=== PATIENT | male | born 1950 | race Caucasian/White ===

== ENCOUNTER 2020-04-05 05:30 | Outpatient (RCR) | payer MEDICARE ==
[~2020-04-05] VITALS: Ht 172.7 cm; Wt 75.8 kg
[~2020-04-05 05:30] MED LIST: AMLO-251 PO; ASPI-999 PO
== END 2020-04-05 12:39 | disposition home or self-care (01) ==
LOC: PREOP 05:30
PROVIDERS: ATTEND Surgery
DX: Z01.812 Encounter for preprocedural laboratory examination (principal); Z12.11 Encounter for screening for malignant neoplasm of colon; Z20.822 Contact with and (suspected) exposure to COVID-19
CPT/HCPCS: 87635

== ENCOUNTER → 2020-04-19 | Outpatient (CLI) | payer MEDICARE | LOC: LABNPT 06:04 | PROVIDERS: ATTEND Surgery | DX: Z20.822 Contact with and (suspected) exposure to COVID-19 (principal) | CPT/HCPCS: 87635 ==

== ENCOUNTER 2020-04-23 09:24 | Day surgery (SDC) | payer MEDICARE, OTHER ==
[~2020-04-23] VITALS: Ht 172.7 cm; Wt 75.8 kg
[2020-04-23] VITALS (10 sets, daily range): BP systolic 108–155; BP diastolic 62–100
[2020-04-23] MEDS ORDERED: LACTATED RINGERS 1,000 ML IV ONE (09:36)
[2020-04-23] MEDS ORDERED: PROPOFOL INJECTION 50 ML IV ONE (10:00)
[2020-04-23] MEDS ORDERED: LACTATED RINGERS 1,000 ML IV PRN (10:15)
--- NOTE | 2020-04-23 11:20 | Progress Note-Post Operative ---
Post-Operative Progess Note Surgeon (s)/Reinforcement Maker (s) Surgeon JACEK ELLER DO Reinforcement Maker: na Pre-Operative Diagnosis screening colonoscopy, family hx colon ca Post-Operative Diagnosis colon polyps Procedure & Operative Findings Date of Procedure 04/23/20 Procedure Performed/Findings colonoscopy c hot bx polypectomy x3 Anesthesia Type per [facility] Estimated Blood Loss Estimated blood loss (mL): none Specimens/Packing Specimens Removed colon polyps JACEK ELLER DO Apr 23, 2020 11:20
--- NOTE | 2020-04-23 11:20 | Discharge Inst-Simple/Standard ---
Discharge Inst-Standard Patient Instructions/Follow Up Plan of Care/Instructions/FU: 2 weeks Carlos Activity as Tolerated: Yes Discharge Diet: Regular Diet (high fiber) JACEK ELLER DO Apr 23, 2020 11:20
--- NOTE | 2020-04-23 15:48 | OPERATIVE REPORT ---
DATE OF SERVICE: 04/23/2020 PREOPERATIVE DIAGNOSIS: Screening colonoscopy, family history of colon cancer. POSTOPERATIVE DIAGNOSIS: Colon polyps. PROCEDURE: Colonoscopy with hot biopsy polypectomy x3. SURGEON: Jacek Gonzalez DO ANESTHESIA: Per SPRAY MIXER. ESTIMATED BLOOD LOSS: None. COMPLICATIONS: None. SPECIMENS: Ascending splenic flexure and sigmoid colon polyp. INDICATIONS: The patient is a 69-year-old male with need for colonoscopy that had one. He understands risks and benefits of procedure and wished to proceed with procedure. Consent was signed in the chart. DESCRIPTION OF PROCEDURE: The patient was taken to endoscopy suite, placed in left lateral recumbent position. Timeout was performed. Digital rectal exam was performed. No palpable polyps, masses or ulcerations. Scope was inserted in the rectum and advanced all the way to cecum with minimal difficulty. Prep was adequate with irrigation and suction. Scope was then slowly retracted back. There were no polyps, masses or ulcerations within the cecum. In the ascending colon, small polyp was present, which hot biopsy polypectomy was performed. Scope was then slowly retracted back through the remainder of the ascending and transverse colon with no polyps, masses or ulcerations. In the splenic flexure, small polyp was present, which hot biopsy polypectomy was performed. Scope was continuously slowly retracted back. No polyps, masses or ulcerations within the remainder of the descending colon. In sigmoid colon, some diverticulosis present. There are also polyp present, which hot biopsy polypectomy was performed. Scope was then continuously slowly retracted back into the rectum where it was retroflexed noting some slight internal hemorrhoids. No other pathology. Scope was returned to its normal position, slowly withdrawn until completely removed. The patient tolerated procedure well without any complications, taken to recovery room in stable condition. RECOMMENDATIONS: The patient will need a repeat colonoscopy in 5 years after evaluating risks and benefits. If he has any issues before that be seen at that time. The patient recommended high fiber diet due to diverticulosis. The patient will follow up in the office in two to three weeks to discuss pathology results. Job ID: [id number] DocumentID: [id number] Dictated Date: 04/23/2020 11:05:29 Cotton Farmer Date: 04/23/2020 15:48:17 Dictated By: JACEK GONZALEZ DO
--- NOTE | 2020-04-25 12:33 | Anesthesia-General Post-Op ---
MAC Patient Condition Mental Status/LOC: Same as Preop Cardiovascular: Satisfactory Nausea/Vomiting: Absent Respiratory: Satisfactory Pain: Controlled Complications: Absent Post Op Complications Complications None Follow Up Care/Instructions Patient Instructions None needed. Anesthesiology Discharge Order Discharge Order Patient is doing well, no complaints, stable vital signs, no apparent adverse anesthesia problems. No complications reported per nursing. WILD FELICIANO CRNA Apr 25, 2020 12:33
== END 2020-04-23 11:45 | disposition home or self-care (01) ==
LOC: ENDO 09:24
PROVIDERS: ATTEND Surgery
DX: Z12.11 Encounter for screening for malignant neoplasm of colon (principal); D12.2 Benign neoplasm of ascending colon; D12.3 Benign neoplasm of transverse colon; D12.5 Benign neoplasm of sigmoid colon; Z80.0 Family history of malignant neoplasm of digestive organs; I10 Essential (primary) hypertension; J44.9 Chronic obstructive pulmonary disease, unspecified; Z79.899 Other long term (current) drug therapy; Z79.02 Long term (current) use of antithrombotics/antiplatelets
CPT/HCPCS: 88305